=== PATIENT | male | born 1995 | race Caucasian/White ===

== ENCOUNTER 2020-07-02 14:12 | Outpatient (REF) | payer OTHER, SELFPAY | END 2020-07-02 14:13 | disposition home or self-care (01) | LOC: HO.LAB 14:12 | PROVIDERS: PCP Pediatrics; Visit Provider Internal Medicine | DX: Z20.828 Contact with and (suspected) exposure to other viral communicable diseases (principal) | CPT/HCPCS: U0003 ==

== ENCOUNTER 2020-07-28 10:36 | Outpatient (REF) | payer OTHER, SELFPAY | END 2020-07-28 10:37 | disposition home or self-care (01) | LOC: HO.LAB 10:36 | PROVIDERS: Visit Provider Internal Medicine | DX: Z20.828 Contact with and (suspected) exposure to other viral communicable diseases (principal) | CPT/HCPCS: C9803; U0003 ==

== ENCOUNTER 2020-08-11 17:21 | Outpatient (REF) | payer OTHER, SELFPAY | END 2020-08-11 17:22 | disposition home or self-care (01) | LOC: HO.LAB 17:21 | PROVIDERS: Visit Provider Internal Medicine | DX: Z20.828 Contact with and (suspected) exposure to other viral communicable diseases (principal) | CPT/HCPCS: C9803; U0003 ==

== ENCOUNTER 2020-09-14 13:43 | Outpatient (REF) | payer OTHER, SELFPAY | END 2020-09-14 13:44 | disposition home or self-care (01) | LOC: HO.LAB 13:43 | PROVIDERS: Visit Provider Internal Medicine | DX: Z20.822 Contact with and (suspected) exposure to COVID-19 (principal) | CPT/HCPCS: 36415; C9803; U0003 ==